=== PATIENT | female | born 2000 | race Caucasian/White ===

== ENCOUNTER 2018-08-20 13:20 | Emergency (ER) | payer OTHER ==
--- NOTE | 2018-08-20 13:27 | UC ---
General HPI - HPI Summary HPI Summary: Reviewed RN notes - Right ear plugged and mild discomfort since Tuesday. Was sick with cold for about a week prior to that. Pleasant 18 yo female c/o R ear plugged, uncomfortable for the last week. Prior to that, she had a cold (sinus, post nasal drip, fever) which is better. Took acetaminophen and iburpofen as needed at the time. Still some phlegm in throat. No rash. No h/a perse. No vis issues. Hearing decreased periodically in R ear since start of sx. Minimal cough. No sob /cp / GI issues. T 99.4F - History of Current Complaint Stated Complaint: RIGHT EAR COMPLAINT Time Seen by Provider: 08/20/18 13:27 Hx Obtained From: Patient Hx Last Menstrual Period: 03/21/16 - Allergy/Home Medications Allergies/Adverse Reactions: Allergies Allergy/AdvReac Type Severity Reaction Status Date / Time No Known Allergies Allergy Verified 08/20/18 13:27 PMH/Surg Hx/FS Hx/Imm Hx Previously Healthy: Yes - Surgical History Surgical History: None - Family History Known Family History: Negative: Diabetes - Social History Alcohol Use: None Substance Use Type: None Smoking Status (MU): Never Smoked Tobacco - Immunization History Vaccination Up to Date: Yes Review of Systems All Other Systems Reviewed And Are Negative: Yes Constitutional: Positive: Other - see hpi Skin: Positive: Negative Eyes: Positive: Other ENT: Positive: Other - see hpi Respiratory: Positive: Other - see hpi Cardiovascular: Positive: Other - see hpi Gastrointestinal: Positive: Other - see hpi Genitourinary: Positive: Negative Motor: Positive: Negative Neurovascular: Positive: Negative Musculoskeletal: Positive: Negative Neurological: Positive: Negative Psychological: Positive: Negative Is Patient Immunocompromised?: No Physical Exam Triage Information Reviewed: Yes Appearance: Well-Appearing, Well-Nourished Vital Signs Reviewed: Yes Eye Exam: Normal ENT: Positive: Other - R TM dull, najera, rx'd. Mild redness inferior TM margin. Not bulging. L TM + perly white, no rtx'd. EAC's bilat clear. Post pharynx mild redness, no sores / exudates. Uvula midline. Neck exam: Normal Neck: Positive: Supple, Nontender, No Lymphadenopathy Respiratory Exam: Normal Respiratory: Positive: Chest non-tender, Lungs clear, Normal breath sounds, No respiratory distress, No accessory muscle use Cardiovascular Exam: Normal Cardiovascular: Positive: RRR, No Murmur, Pulses Normal, Brisk Capillary Refill Abdominal Exam: Normal Abdomen Description: Positive: Nontender Musculoskeletal Exam: Normal - gait steady Neurological Exam: Normal - detailed neuro exam not done. grossly nonfocal Psychological Exam: Normal - conversing easily and appropriately Skin Exam: Normal - no visible or reported rash Course/Dx - Course Course Of Treatment: Reviewed dx/coa. Likely eustacian tube dysfunction with sinus pressure. Redness supsicious barotrauma. However, if sx no better or worse, will start azithromycin (sinus / ear). D/w pt. F/u PCP if no better by next week. Questions as posed answered to the best of my ability. - Diagnoses Provider Diagnosis: Serous otitis media Discharge - Sign-Out/Discharge Documenting (check all that apply): Patient Departure All imaging exams completed and their final reports reviewed: No Studies - Discharge Plan Condition: Stable Disposition: HOME Prescriptions: Azithromyxin JADA (NF) [Z-Jada (Zithromax) 250 mg tabs #6] 2 tab PO .TODAY, THEN 1 DAILY #6 tab Patient Education Materials: Antihistamine/Decongestant (By mouth), Serous Otitis Media (ED) Referrals: Maria T Whatley MD [Primary Care Provider] - Additional Instructions: Antihistamine daily for the next 3 days, and then as needed thereafter for ear congestion. Consider decongestant, during the day, but not right before going to sleep. Antibiotic only if sinus pressure, yellow drainage, or if no improvement in symptoms in 3 days. Follow up with your doctor per routine, but sooner if no improvement after one week. Drink plenty of water. - Billing Disposition and Condition Condition: STABLE Disposition: Home
[2018-08-20 13:32] VITALS: BP 121/62
== END 2018-08-20 13:59 | disposition home or self-care (01) ==
LOC: UCCORT 13:20
DX: H65.91 Unspecified nonsuppurative otitis media, right ear (principal)
CPT/HCPCS: 99212; G0463